=== PATIENT | female | born 1935 | race Caucasian/White ===

== ENCOUNTER 2017-08-20 07:31 | Emergency (ER) | payer MEDICARE ==
[~2017-08-20] VITALS: Ht 154.9 cm; Wt 50.0 kg
[~2017-08-20 07:31] MED LIST: ASPIRIN325 MG PO; ATENOLOL50 MG PO; ATORVASTATIN CA10 MG PO; ATORVASTATIN CA20 MG PO; B12 LIQUID OR; BENTYL10 MG PO; CALCIUM600 M2 OR; CALCIUM600 M2 PO; CHLORTHALID25 MG PO; CHLORTHALIDONE25 MG OR; CIPROFLOXACN500 MG PO; CO Q 10100 MG OR; CO Q-10100 MG PO; ESTROPIPATE0.75 MG OR; ESTROPIPATE0.75 MG PO; FENOFIBRATE145 MG PO; FENOFIBRATE160 MG PO; FISH OIL1000 MG PO; FLAGYL500 MG PO; FOLIC ACID1 MG PO; KRILL OIL OMEG300 MG PO; LORTAB 5/3255 MG PO; LOSARTAN POT100 MG PO; LOVASTATIN40 M1 PO; METRONIDAZOL500 MG PO; ONDANSETRON4 MG PO; PLAVIX75 MG PO; PROBIOTI1 OR; PROBIOTI3 PO; ULTRAM50 M1 PO; VITAMIN D2000 UNI2 PO; ZOFRAN ODT4 MG PO; ZOFRAN4 MG/TAB PO
[2017-08-20] MEDS ORDERED: ESTROPIPATE0.75 MG PO (08:12)
[2017-08-20] MEDS ORDERED: VITAMIN D35000 UNIT PO (08:15)
[2017-08-20] MEDS ORDERED: B121000 MCG SL (08:16)
[2017-08-20] MEDS ORDERED: MAGNESIUM 250 M1 TAB (08:16)
[2017-08-20 08:38] LABS: HEMATOCRIT 39.3 % (37.0-47.0); HEMOGLOBIN 13.2 g/dl (12.0-16.0); IMMATURE GRANULOCYTES 0.3 % (0.0-1.0); MEAN CELL VOLUME 98.3 fL CALC (80.0-100.0); MEAN CORPUSCULAR HGB CONC 33.6 g/L CALC (32.0-36.0); NEUT# 2.13 thou/uL (2.00-7.15); RED CELL DISTRI WIDTH 13.3 % (11.5-15.5)
[2017-08-20 08:56] LABS: ALBUMIN 3.7 g/dL (3.2-5.0); BILIRUBIN, TOTAL 0.7 mg/dL (0.0-1.4); CALCIUM 9.3 mg/dL (8.4-10.2); CREATININE 1.2 mg/dL (0.5-1.0); POTASSIUM 3.6 mmol/l (3.5-5.1); TOTAL PROTEIN 6.3 g/dL (6.3-8.2)
[2017-08-20 09:58] LABS: URINE BILIRUBIN - DIPSTICK NEGATIVE (NEGATIVE); URINE BLOOD DIPSTICK TRACE-INTACT (NEGATIVE); URINE COLOR YELLOW; URINE GLUCOSE - DIPSTICK NEGATIVE (NEGATIVE); URINE KETONE NEGATIVE (NEGATIVE); URINE LEUK ESTERASE NEGATIVE (NEGATIVE); URINE NITRITE - DIPSTICK NEGATIVE (Negative); URINE PH 5.5 (4.5-8.0); URINE PROTEIN - DIPSTICK NEGATIVE (NEG-TRACE); URINE SPECIFIC GRAVITY <=1.005; URINE UROBILINOGEN - DIPSTICK 0.2 E.U./dL (0.2)
[2017-08-20 10:01] LABS: URINE CLARITY SL CLOUDY
[2017-08-20 13:18] LABS: PROTHROMBIN TIME 11.3 SECONDS (9.0-12.5)
[2017-08-20 15:30] VITALS: BP 159/85
== END 2017-08-20 15:40 | disposition short-term general hospital (02) ==
LOC: ED 07:31
PROVIDERS: Emergency Medicine
DX: K74.60 Unspecified cirrhosis of liver (principal); R18.8 Other ascites; K76.6 Portal hypertension; R10.33 Periumbilical pain; R11.0 Nausea; R19.7 Diarrhea, unspecified; Z86.73 Personal history of transient ischemic attack (TIA), and cerebral infarction without residual deficits